=== PATIENT | male | born 1955 | race Caucasian/White ===

== ENCOUNTER 2023-12-08 12:01 | Outpatient (CLI) | payer MEDICARE, SELFPAY ==
--- NOTE | 2023-12-08 12:09 | XR_ITS ---
PROCEDURE INFORMATION: Exam: XR Right Hip Exam date and time: 12/08/2023 12:25 PM Age: 68 years old Clinical indication: Right hip; Patient HX: Woke up with hip pain TECHNIQUE: Imaging protocol: Radiologic exam of the right hip. Views: 2 or 3 views hip with pelvis when performed. COMPARISON: No relevant prior studies available. FINDINGS: Bones/joints: Unremarkable. No acute fracture. Soft tissues: Unremarkable. IMPRESSION: No acute findings.
== END 2023-12-08 23:59 | disposition home or self-care (01) ==
LOC: RAD 12:06
PROVIDERS: PCP Family Medicine; Visit Provider Nurse Practitioner Family
DX: M25.551 Pain in right hip (principal)
CPT/HCPCS: 73502

== ENCOUNTER 2023-12-15 10:40 | Emergency (ER) | payer MEDICARE, SELFPAY ==
[2023-12-15 10:55] VITALS: BP 143/89; PULSE 101; RESP 19; TEMP 36.8; O2SAT 98; BMI 33.5
--- NOTE | 2023-12-15 11:13 | EXP.UTC ---
Discharge Plan Disposition Patient Disposition: Home, Self-Care Condition: Good Referrals Follow up/Referrals: Rashid Paul MD [Primary Care Provider] - See instructions Activity Restrictions/Add. Instructions Additional Instructions/Restrictions: Your Uric acid was within the normal range today, make sure to follow up with your Family Doctor if you start having symptoms again The naproxen may help with pain and help with gout if you are having a gout flare Return if needed Straight to ER if any life threatening symptoms Clinical Impressions Clinical Impression: Knee pain Qualifiers: Chronicity: unspecified Laterality: left Qualified Code(s): M25.562 - Pain in left knee Instructions Patient Instructions: DI for Knee Pain, Naproxen Print Language Print Language: Lithuanian Discharge ED Provider: Shreya Smith [facility] General Stated complaint: Gout Mode of Arrival: Ambulatory Source of Information: Patient Limitations: No Limitations Time Seen by Provider: 12/15/23 11:14 Description of Symptoms (Recalled from Triage Doc. by RN): PATIENT C/O PAIN TO RIGHT HIP THAT RADIATES DOWN TO KNEE SINCE 12/01/23 HEENT Symptoms (Recalled from RN notes): No Resp Symptoms (Recalled from RN notes): No Skin Symptoms (Recalled from RN notes): No MS Symptoms (Recalled from RN notes): Yes Functional Status (Recalled from RN notes): WNL History of Present Illness Provider Complaint: Patient states that he started last week with pain in his right leg States initially it was in his hip and radiated down his leg states he seen PCP and they given him a steriod pack and anti-inflammatory medication but then he stared with pain in his left knee and it was swollen and felt like he had gout States a friend had purple gout pills that he took 2 waited an hour and then took another one the pain went away States today he felt like he was starting to have pain again in his knee and wanted to get some more of the gout pills States he had an xray done on his right hip last week and it didnt show anything wanting to get tested for gout Related Data Allergies Allergy/AdvReac Type Severity Reaction Status Date / Time No Known Allergies Allergy Verified 12/15/23 11:02 Worker's Comp Is this a Worker's Comp case?: No [facility] Disclaimer: The information contained in this section may have been updated after the patient was seen, as this information can be updated by other users. Medical History (Updated 12/15/23 @ 11:46 by Shreya Smith APRN) No significant past medical history Social History Smoking Status: Unknown if ever smoked alcohol intake: never current occupational status: retired Travel in the last 8 weeks: None ROS Obtained: Yes All systems reviewed & no additional complaints except as documented and Yes Systems reviewed as appropriate & no additional complaints except as documented Constitutional Constitutional: Reports system reviewed and no additional complaints, except as documented, Reports as per HPI, Denies body ache, Denies chills and Denies fever(s) ENT Ears, Nose, Mouth, and Throat: Reports system reviewed and no additional complaints, except as documented and Reports as per HPI Cardiovascular Cardiovascular: Reports system reviewed and no additional complaints, except as documented and Reports as per HPI Respiratory Respiratory: Reports system reviewed and no additional complaints, except as documented and Reports as per HPI Gastrointestinal Gastrointestingal: Reports system reviewed and no additional complaints, except as documented and as per HPI Musculoskeletal Musculoskeletal: Reports system reviewed and no additional complaints, except as documented, Reports as per HPI and Reports other Comments: Pain on and off in right hip/knee area last week took steriod pack Took friends gout medication and pain went away Physical Exam General General appearance: alert and in no apparent distress ENT ENT exam: Present mucous membranes moist Respiratory Respiratory exam: Present normal lung sounds bilaterally; Absent respiratory distress or wheezes Cardiovascular Cardiovascular exam: Present regular rate, normal rhythm and normal heart sounds Expanded Lower Extremity Exam Right: Leg image: 1. having a little tenderness, no redness, no swelling Knee exam: Present tenderness Lower leg exam: Present normal inspection Foot/toe exam: Present normal inspection Neurological Exam Neurological exam: Present alert, oriented X3 and normal gait Medical Decision Making Medical Records Screening: Per USPSTF and CDC recommendations, given the prevalence of disease in our region, it is our hospital?s policy to screen for HIV and viral Hepatitis for all patients aged 18 and over and those with ongoing risk factors. Wei Inquiry Pt receiving controlled substance: No Wei was queried for this patient: No Vital Signs: 12/15/23 10:55 Temperature 98.3 F Temperature Source Oral Pulse Rate [Left Brachial] 101 H Respiratory Rate 19 Blood Pressure [Left Arm] 143/89 H Blood Pressure Mean [Left Arm] 107 Blood Pressure Source [Left Arm] Automatic Cuff Blood Pressure Position [Left Arm] Sitting 02 Sat by Pulse Oximetry 98 Oxygen Delivery Method Room Air Lab Data Lab results reviewed: Yes I reviewed the patient's lab results. Orders (Tests/Meds): ORDERS Category Date Time Status Uric Acid Stat Lab 12/15/23 11:08 Ordered Medical Decision Narrative: Patient had Hip xray on 12/08/23 discussed knee xray and he declined wanted to get uric acid checked
[2023-12-15 11:34] LABS: Uric Acid 3.5 mg/dl (3.5-8.5)
[2023-12-15 11:46] VITALS: BP 143/89; PULSE 101; RESP 19; TEMP 36.8; O2SAT 98
== END 2023-12-15 11:49 | disposition home or self-care (01) ==
PROVIDERS: Emergency Provider Nurse Practitioner; PCP Family Medicine
DX: M25.562 Pain in left knee (principal)
CPT/HCPCS: 84550; 99213; G0381

== ENCOUNTER 2024-01-05 11:04 | Outpatient (CLI) | payer MEDICARE, SELFPAY ==
--- NOTE | 2024-01-05 11:10 | XR_ITS ---
FINAL REPORT CLINICAL HISTORY: LEG WEAKNESS B/L COMPARISON: None FINDINGS: AP, lateral, and oblique views of the lumbar spine were obtained. There is no acute fracture or acute malalignment. Vertebral body height is preserved. Multilevel degenerative changes present, most pronounced at the L5-S1 level. No acute paraspinal abnormality is identified. IMPRESSION: Multilevel degenerative disease most pronounced at the L5-S1 level. Reviewed, Interpreted and Dictated by Adelia Funez MD Transcribed by Ashlie Rendon Authenticated and [facility]
== END 2024-01-05 23:59 | disposition home or self-care (01) ==
LOC: RAD 11:05
PROVIDERS: PCP Family Medicine; Visit Provider Family Medicine
DX: R29.898 Other symptoms and signs involving the musculoskeletal system (principal)
CPT/HCPCS: 72110

== ENCOUNTER 2024-03-02 08:10 | Outpatient (CLI) | payer MEDICARE, SELFPAY ==
--- NOTE | 2024-03-02 08:23 | MR_ITS ---
FINAL REPORT CLINICAL HISTORY: IDIOPATHIC NEUROPATHY. right leg pain and burning COMPARISON: None FINDINGS: Multiplanar MR imaging of the lumbar spine was performed without and with contrast. On the sagittal T2-weighted images, abnormal decreased signal is seen throughout. There is moderate loss of height at L5-S1 with endplate reactive signal changes. L1-2: No significant canal stenosis or neuroforaminal narrowing is seen. L2-3: Mild diffuse disc bulge. Mild bilateral neuroforaminal narrowing L3-4: Moderate diffuse disc bulge. Endplate hypertrophy. Moderate to high-grade bilateral neuroforaminal narrowing L4-5: Moderate diffuse disc bulge. Bilateral facet hypertrophy. Moderate to high-grade right and moderate left neuroforaminal narrowing. L5-S1: Moderate diffuse disc bulge. Endplate hypertrophy. Mild right and moderate to high-grade left neuroforaminal narrowing. No abnormal contrast enhancement is identified. IMPRESSION: Neuroforaminal narrowing most evident on the left at L3-4 and L5-S1 and on the right at L4-5 Reviewed, Interpreted and Dictated by Jimbo Fowler MD Transcribed by Shandra Whipple Authenticated and [facility]
[2024-03-02 08:50] LABS: Blood Urea Nitrogen 16 mg/dl (9-20); Estimated Glomerular Filt Rate 113 ml/min (>60); GFR (African American) 137 ML/MIN (>60)
[2024-03-02] MEDS: SODIUM CHLORIDE 0.9% 10ML SYR (RAD ONLY) 10 ML IV ×2 (09:11→09:37)
[2024-03-02] MEDS: GADOTERIDOL INJ 20ML SYRINGE 18 ML IV (09:11)
--- NOTE | 2024-03-02 09:25 | CT_ITS ---
FINAL REPORT TECHNIQUE: Thin section axial images were obtained of the abdomen pelvis before and after the administration of IV contrast. Coronal and sagittal reconstructions were obtained and reviewed. This study was performed with techniques to keep radiation doses as low as reasonably achievable, (ALARA). Individualized dose reduction techniques using automated exposure control or adjustment of mA and/or kV according to the patient's size were employed. CLINICAL HISTORY: IDIOPATHIC NEUROPATHY COMPARISON: None FINDINGS: Calcified granulomas are seen in the right lung base. There is mild fatty infiltration of the liver. The gallbladder is normal. Calcified granulomas are seen in the spleen. The pancreas, adrenal glands, and kidneys are unremarkable. The urinary bladder is incompletely distended. There appendix is unremarkable. There are moderate hypertrophic changes of degenerative disc disease at L5-S1. Precontrast images demonstrate no nephrolithiasis. IMPRESSION: No acute process Reviewed, Interpreted and Dictated by Jimbo Fowler MD Transcribed by Shandra Whipple Authenticated and [facility]
[2024-03-02] MEDS: IOPAMIDOL-370 (76%);100ML BOTTLE 75 ML IV (09:37)
== END 2024-03-02 23:59 | disposition home or self-care (01) ==
LOC: RAD 08:13
PROVIDERS: PCP Family Medicine; Visit Provider Family Medicine
DX: G60.9 Hereditary and idiopathic neuropathy, unspecified (principal)
CPT/HCPCS: 36415; 72158; 74178; 82565; 84520; A9576; Q9967

== ENCOUNTER 2024-03-29 10:07 | Outpatient (POV) | payer MEDICARE, SELFPAY ==
--- NOTE | 2024-03-29 10:18 | A.OFFVIS_ITS ---
HPI Data of Consult Patient: new to practice Consult date: 03/29/24 Requesting Physician: Kat Bush APRN Primary Care Provider: Tyree Paul MD Consult Narrative Reason for consult: Low back pain, right leg pain History of present illness: Mr. Pope is a 68 year old male who presents today as a new patient. He is a referral from Dr. Mondragon's office. Today he rates his pain an 8 out of 10. Patient states his pain is all radiating down his entire right extremity. Patient does state that he has had low back pain for years that is progressively worsened related to wear and tear. Patient states that it was in November however that all of a sudden he had a burning sensation that went from his hip down to his foot. Patient states it was debilitating and he could not even walk due to the worsening symptoms. He states he ended up going to urgent treatment and did get muscle relaxers. He states that this really did not seem to make a big difference and he ended up seeing his primary care who has done meloxicam gabapentin and prednisone. He states that these did seem to help a little bit however he is still having the fairly constant pain of burning, tingling down the right extremity. He denies any issues with the left side. He states that no specific positioning is very helpful and that it does interfere with his ability perform activities of daily living such as cooking and cleaning. Patient states that he did end up seeing neurosurgery however he was not given much information in this appointment other than he had a pinched nerve. Patient states he was very frustrated with not giving more details or information or options. Patient has tried oral medication, heat and ice and topicals with minimal relief. He does state that the ice does seem to help better however it is still very temporary. He denies any prior surgery or injection history. He does have a very active life and exercises on a regular basis prior to this pain for longer than 12 weeks. He states he is still trying to do exercise and home stretching however it is very limited due to the worsening pain symptoms. Patient denies any recent chiropractor or physical therapy.Patient is currently managed with pregabalin 75 mg 3 times a day from an outside provider. Patient had been previously prescribed gabapentin. His Wei has been reviewed and is appropriate. CC: Kat Bush APRN [facility] Disclaimer: The information contained in this section may have been updated after the patient was seen, as this information can be updated by other users. Medical History (Updated 03/29/24 @ 10:58 by Kat Bush APRN) No significant past medical history Social History (Updated 12/15/23 @ 11:47 by Shreya Smith APRN) Smoking Status: Unknown if ever smoked alcohol intake: never current occupational status: retired Travel in the last 8 weeks: None Review of Systems Review of Systems Review of systems:: pertinent systems reviewed and negative unless documented below Review of systems (narrative): Review of Systems: General: No recent weight changes, no fever, no sleep disturbances Respiratory: No cough, no shortness of air, no recurring pulmonary infections Cardiovascular/peripheral vascular: No chest pain, no palpitations, no edema, no shortness of breath Gastrointestinal: No new onset incontinence, normal bowel movements reported Genitourinary: No new onset incontinence Musculoskeletal: Low back pain, right leg pain, right hip pain Psychiatric: [Normal mood/affect] Neurological: [Denies weakness in extremities], [denies balance issues] Meds Home Medications and Allergies New Prescriptions to Start Prescriptions: Allergies Allergy/AdvReac Type Severity Reaction Status Date / Time No Known Allergies Allergy Verified 12/15/23 11:02 Objective Narrative: Physical Exam: General: Alert and oriented x3, no acute distress, pleasant and cooperative Lungs: Respirations even and unlabored, symmetrical chest expansion Eyes: PERRL Musculoskeletal: Flexion and extension of lumbar [spine] somewhat guarded secondary to pain, [antalgic gait noted] positive right leg raise Neurological: Speech clear, no gross sensory deficit Additional findings Additional findings: FINDINGS: Multiplanar MR imaging of the lumbar spine was performed without and with contrast. On the sagittal T2-weighted images, abnormal decreased signal is seen throughout. There is moderate loss of height at L5-S1 with endplate reactive signal changes. L1-2: No significant canal stenosis or neuroforaminal narrowing is seen. L2-3: Mild diffuse disc bulge. Mild bilateral neuroforaminal narrowing L3-4: Moderate diffuse disc bulge. Endplate hypertrophy. Moderate to high-grade bilateral neuroforaminal narrowing L4-5: Moderate diffuse disc bulge. Bilateral facet hypertrophy. Moderate to high-grade right and moderate left neuroforaminal narrowing. L5-S1: Moderate diffuse disc bulge. Endplate hypertrophy. Mild right and moderate to high-grade left neuroforaminal narrowing. No abnormal contrast enhancement is identified. IMPRESSION: Neuroforaminal narrowing most evident on the left at L3-4 and L5-S1 and on the right at L4-5 Assessment and Plan *Assessment and plan (1) Degenerative disc disease, lumbar: Status: Acute Category: Medical Code(s): M51.369 - Other intervertebral disc degeneration, lumbar region without mention of lumbar back pain or lower extremity pain (2) Lumbar radiculopathy: Status: Acute Category: Medical Code(s): M54.16 - Radiculopathy, lumbar region (3) Right leg pain: Status: Acute Category: Medical Code(s): M79.604 - Pain in right leg Plan Patient is experiencing worsening pain in his low back with burning and tingling into his right leg. Patient did have limited range of motion of his lumbar spine with a positive leg raise. I did discuss with patient that I do believe they would benefit from a lumbar epidural steroid injection. Risk and benefits were discussed with patient and the patient would like to proceed forward with this plan of care. Patient is not on any blood thinners. Patient has tried and failed conservative therapy including continued at home stretching exercise for longer than 12 weeks. Patient has been seen by neurosurgery and was not a surgical candidate. I will order the patient a compounded cream. We will nani edule the patient for an LESI L4-L5 under fluoroscopy. Patient does have moderate to high-grade narrowing along the right side at this level. Patient has been instructed to contact the clinic with any concerns before the next appointment. Dr. Ferreira has reviewed this note and agrees with this plan of care. This note was dictated using voice recognition software and make contain errors or omissions. All injections are used with Lidocaine, Bupivacaine and Depo Medrol. Occasionally urine drug screen is needed to verify patient's compliance with our office pain contract. This is ordered based off specific treatments related to chronic pain with the potential to abuse certain medications. Patient has been instructed to contact the clinic with any concerns before the next appointment. Dr. Ferreira has reviewed this note and agrees with this plan of care. This note was dictated using voice recognition software and make contain errors or omissions. All injections are used with Lidocaine, Bupivacaine and Depo Medrol. Occasionally urine drug screen is needed to verify patient's compliance with our office pain contract. This is ordered based off specific treatments related to chronic pain with the potential to abuse certain medications.
[2024-03-29 11:08] VITALS: BP 136/90; PULSE 82; RESP 18; O2SAT 94; BMI 29.1
== END 2024-03-29 23:59 | disposition home or self-care (01) ==
LOC: SC.PAIN 10:09
PROVIDERS: PCP Psychiatry & Neurology Sleep Medicine; Visit Provider Nurse Practitioner Family
DX: M51.16 Intervertebral disc disorders with radiculopathy, lumbar region (principal); M79.604 Pain in right leg; Z73.89 Other problems related to life management difficulty
CPT/HCPCS: 99202; G0463

== ENCOUNTER 2024-04-20 11:57 | Day surgery (SDC) | payer MEDICARE, SELFPAY ==
[2024-04-20 11:59] VITALS: BP 123/82; PULSE 68; RESP 16; TEMP 37.1; O2SAT 96; BMI 30.1
--- NOTE | 2024-04-20 12:20 | EXP.PAIN.PRO ---
Procedure Date: 04/20/24 Time: 12:15 Anesthesiologist:: Elliot Bowling CRNA Complications:: None Pre-procedure Diagnosis:: Degenerative disc lumbar spine multilevels. Lumbar radiculopathy. Post-procedure Diagnosis:: Same. Indications for Procedure:: Patient is a very pleasant 68-year-old male who comes our clinic today for lumbar epidural steroid injection. Patient describes low lumbar back pain as constant, dull, aching. Patient also reports bilateral hip and leg radicular symptoms. He rates his pain 8/10. Procedure Details:: Procedure: Lumbar epidural steroid injection under fluoroscopy Informed consent was obtained and the risks and benefits of the procedure were explained to the patient. The patient was taken to the procedure room and noninvasive monitors placed, including noninvasive blood pressure cuff and pulse oximeter. The back was viewed using C-arm Fluoroscopy and prepped using Chloraprep as a cleansing solution and the L4-L5 interspace was palpated. Skin and subcutaneous tissues were anesthetized using lidocaine 1.5% and a 25-gauge needle. After this, an 18-gauge Touhy epidural needle was placed into the L4-L5 interspace and advanced using fluoroscopic guidance and loss of resistance to air until the epidural space was encountered. After confirmation of needle placement in the epidural space, with dye, a solution containing normal saline, 3 mL and Depo-Medrol 80 mg were incrementally injected into the lumbar epidural space. The patient tolerated the procedure well with no complications. The patient was observed in the Pain Clinic and then discharged home neurologically intact. Plan and Disposition:: Patient was discharged without incident.
[2024-04-20 12:27] VITALS: BP 110/75; PULSE 72; RESP 16; O2SAT 95
[2024-04-20 14:33] VITALS: BP 123/82; PULSE 68; RESP 18; O2SAT 96
[2024-04-20] MEDS: methylPREDNISolone ACETATE 80MG/ML VIAL 80 MG (14:33)
[2024-04-20 14:38] VITALS: BP 123/82; PULSE 68; RESP 18; O2SAT 96
== END 2024-04-20 12:27 | disposition home or self-care (01) ==
PROVIDERS: PCP Psychiatry & Neurology Sleep Medicine; Visit Provider Nurse Anesthetist, Certified Registered
DX: M51.16 Intervertebral disc disorders with radiculopathy, lumbar region (principal)
CPT/HCPCS: 62323; J1010

== ENCOUNTER 2024-10-23 09:55 | Emergency (ER) | payer MEDICARE, SELFPAY ==
--- OUTSIDE RECORDS SUMMARY | 2024-02-05 12:15 | XMS_ITS ---
[facility] Address [address] [facility] [address] [place] [id number] Care Team Providers Care Mobile Battery Technician Name Role Phone Norberto Paul Primary Care Provider Allergies No Known Allergies Results Component Value Reference Range Notes P-PSA Reviewed date:02/09/2024 01:16:37 PM Interpretation:Normal Performing Lab: Notes/Report: Test performed by [facility] [address] [place] [address] , [address], [place] [address] Chris Cabezas MD, Drawing Kiln Operator CLIA: [id number] PSA 3.01 <4.00 ng/mL Please note this is an ultrasensitive PSA assay with a lower limit of detection of 0.014 ng/mL. This test is performed by the Courtney ECLIA methodology. Values obtained with different assay methods or kits cannot be directly compared. MRI : spine, lumbosacral wit h and without contrast Reviewed date:03/08/2024 09:03:46 AM Interpretation:neuroforaminal narrowing, 03/05/24 f/u OV Performing Lab: Notes/Report: neuroforaminal narrowing, 03/05/24 f/u OV CT Scan : Abdomen & Pelvis w & w/o contrast Reviewed date:03/08/2024 09:03:39 AM Interpretation:Negative, see 03/05/2024 OV Performing Lab: Notes/Report: Negative, see 03/05/2024 OV REASON FOR VISIT F/U Medications Medication SIG (Take, Route, Fr equency, Duration) Notes Start Date End Date Status Naproxen 500 MG TAKE 1 TABLET BY DOLLY TH EVERY 12 HOURS WITH FOOD OR MILK NEEDED; Duration: 30 Active Problems Problem Type SNOMED Code ICD Code Onset Dates Problem Status W/U Status Risk Notes Problem 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 Vital Signs Blood pressure systolic 126 mm Hg 02/05/20 24 Blood pressure diastolic 82 mm Hg 024 Heart Rate 75 /min 02/05/2024 Height 58 in 02/05/2024 Weight 201.8 lbs 02/05/2024 BMI 42.17 kg/m2 02/05/2024 Encounters Encounter Location Date Provider Diagnosis [facility] [address] [facility] [address] [place] [id number] 02/05/2024 Norberto Paul Idiopathic neuropath y G60.9 and Prostate cancer screening Z12.5 Assessments Encounter Date Diagnosis (ICD Code) Assessment Notes Treatment Notes Treatment Clinical Notes Section Notes 02/05/2024 Idiopathic neuropathy (ICD-10 - G60.9) 02/05/2024 Prostate cancer screening (ICD-10 - Z12.5) Plan Of Treatment Next Appt Details Follow Up: 3 Weeks, Reason: Provider Name:Norberto Yeager er, 11/01/2024 10:15:00 AM, [address] [facility], [address], [place], [id number], Progress Notes * Soren POPEOB:1955 (69 yo M)Acc No.[id number]:02/05/2024 Progress Notes Patient: Kapil MALONEY Provider: Norberto Paul M.D. :1955 A ge:68 Y S ex:Male Date:02/05/2024 Address:[facility] [address], [id number] Subjective: * Chief Complaints: * 1 . F/U. * HPI: H PI: 68 year old male presents with c/o Here for follow up on: P t is here for a f/u from the neurologist last week. Pt sts after having the procedure done he is doing worse. * ROS: D ERMATOLOGY: no R panchito. n o H ramin. G ASTROENTEROLOGY: no N ausea. n o V omiting. n o D iarrhea.? U ROLOGY: no D ifficulty urinating. n o B lood in urine. * Medical History: M edical History Verified. * Surgical History: R wrist/ hand 12-19, right inguinal hernia repair 11/2009. * Family History: F ather: alive. M other: alive, high blood pressure. S iblings: gall bladder removed, sister. 1 brother(s) , 1 sister(s) . . * Social History: C affeine: yes, frequency:4 cups a coffee, a couple of pops during the day. Past smoking status: no. Alcohol: No. * Medications: T aking Naproxen 500 MG Tablet TAKE 1 TABLET BY MOUTH EVERY 12 HOURS WITH FOOD OR MILK NEEDED , Medication List reviewed and reconciled with the patient * Allergies: N .K.D.A. Objective: * Vitals: W t:201.8, Temp:98.4, BP:126/82, HR:75, Nurse:[facility], Ht: 58, BMI:42.17. * Examination: G eneral Examination: General Appearance: N AD. H EENT: u nremarkable.?Oral cavity: n o lesions, mucosa moist and WNL, no erythema. N asia: s upple, no lymphadenopathy. C hest: n ormal shape and expansion. H eart: R SR. L ungs: c lear to auscultation. A bdomen: soft and nontender, no organomegaly or masses. N eurologic Exam: I ntact, gait normal. S kin: n ormal, no rash. P eripheral pulses: n ormal (2+) bilaterally. E xtremities: n o leg edema. G enitalia: anus normal, no rectal lesions, prostate normal, prostate not enlarged. Assessment: * Assessment: 1. I diopathic neuropathy - G60.9 (Primary) 2 . P rostate cancer screening - Z12.5 Plan: * Treatment: ?Imaging: CT Scan : Abdomen & Pelvis w & w/o contrast (Performed Date - 03/02/2024)?Negative, see 03/05/2024 OV* Linda Lerner 02/09/2024 10:2 1:47 AM > auth#[id number]; valid 02/09/2024 through 04/09/2024; CPT code 11656; faxed to [facility] Linda Navas 02/09/2024 11:03:59 AM > Mariana scheduled him on 02/24/24 at 9:00 2.?Prostate cancer screening?LAB: P-PSA (Collection Date & Time - 02/05/2024 03:45 PM)?Normal* Value Reference Range P SA 3.01 <4.00 - ng/mL * Haley Carrasco 02/09/2024 1: 16:21 PM > , Patient informed of normal results. * Follow Up: 3 Weeks * Images: Billing Information: * Visit Code: 52296 Office Visit, Est Pt., Level 3. * Procedure Codes: * Electronic signature of Norberto Paul MD on 10/23/2024 at 10:18 AM EDT Sign off status: Pending * Provider: Norberto Paul M.D. Date: 04/07/2023 Generated for Printi ng/Faxing/eTransmitting on: 0 10/23/2024 10:18 AM EDT History and Physical Notes * HPI (History of Present Illness) Category Sub-Category Detail Notes Category Not es HPI Here for follow up on: Pt is her e for a f/u from the neurologist last week. Pt sts after having the procedure done he is doing worse Examination Category Sub-Category Detail Notes Category Not es General Examination HEENT: unremarkable Heart: RSR Lungs: clear to auscultatio n Abdomen: soft and nontender, no organomegaly or masses Extremities: no leg edema General Appearance: NAD Skin: normal, no rash Neurologic Exam: Intact, gait normal Neck: supple, no lymphaden opathy Oral cavity: no lesions, mucosa m oist and WNL, no erythema Peripheral pulses: normal (2+) bilatera lly Genitalia: anus normal, no rect al lesions, prostate normal, prostate not enlarged Chest: normal shape and exp ansion
--- OUTSIDE RECORDS SUMMARY | 2024-03-05 07:15 | XMS_ITS ---
Author [facility] Address [address] [facility] [address] [place] [id number] Care Team Providers Care Conservation Planner Name Role Phone Norberto Paul Primary Care Provider [phone] Allergies No Known Allergies Reason For Referral Reason LS spine, To see Dr. Todd Diagnosis 1 Neuroforaminal steno sis of lumbosacral spine (M48.07) Ref[facility] Referring Provider First Name Norberto Clements Referring Provider Last Name Humberto Referring Provider Speciality Family Pra ctice Referred Provider Specialty Neurological Surgery General Notes Linda Lerner 03/05/19 25 12:48:48 PM > faxed to [facility] Referral Priority Routine REASON FOR VISIT 3 week F/U, See MRI l-spine and CT Abd results Medications Medication SIG (Take, Route, Fr equency, Duration) Notes Start Date End Date Status Gabapentin 300 MG 1 capsule Orally Three times a day 03/05/2024 Active predniSONE 10 MG 1 tablet Orally Once a day 2024 Active Meloxicam 15 MG 1 tablet Orally Once a day 025 Active Naproxen 500 MG TAKE 1 TABLET BY DOLLY TH EVERY 12 HOURS WITH FOOD OR MILK NEEDED; Duration: 30 days Active Problems Problem Type SNOMED Code ICD Code Onset Dates Problem Status W/U Status Risk Notes Problem Lumbosacral spondylosis without myelopathy (43684443) Osteoarthritis of spine with radiculopathy, lumbar region (M47.26) Active confirmed Problem Spinal stenosis of lumbar region (43010635) 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) Active confirmed Vital Signs Blood pressure systolic 130 mm Hg 03/05/19 25 Blood pressure diastolic 86 mm Hg 025 Heart Rate 70 /min 03/05/2024 Height 58 in 03/05/2024 Weight 208.2 lbs 03/05/2024 BMI 43.51 kg/m2 03/05/2024 Encounters Encounter Location Date Provider Diagnosis [facility] [address] [facility] [address] [facility] [address] [place], [place] [id number] 03/05/2024 Norberto Paul Osteoarthritis of sp ine with radiculopathy, lumbar region M47.26 and Neuroforaminal stenosis of lumbosacral spine M48.07 Assessments Encounter Date Diagnosis (ICD Code) Assessment Notes Treatment Notes Treatment Clinical Notes Section Notes 03/05/2024 Osteoarthritis of spine with radiculopathy, lumbar region (ICD-10 - M47.26) 03/05/2024 Neuroforaminal stenosis of lumbosacral spine (ICD-10 - M48.07) Plan Of Treatment Medication Medication Name Sig Start Date Stop Date Notes Gabapentin 300 MG 1 capsule Orally Three times a day 03/05 predniSONE 10 MG 1 tablet Orally Once a day 03/05/2024 Meloxicam 15 MG 1 tablet Orally Once a day 03/05/2024 Referrals Referral Date Details 03/05/2024 03/05/2024, LS spine , To see Dr. Todd Next Appt Details Follow Up: 2 Weeks, Reason: Provider Name:Norberto Yeager er, 11/01/2024 10:15:00 AM, [address] [facility] [address] [facility], [address], [place], [id number], Progress Notes * OCTAVIANO AriRobertaOB:1955 (69 yo M)Acc No.[id number]:03/05/2024 Progress Notes Patient: Kapil MALONEY Provider: Norberto Paul M.D. :1955 A ge:68 Y S ex:Male Date:03/05/2024 Address:[address] [place] [address], [id number] Subjective: * Chief Complaints: * 1 . 3 week F/U. 2. See MRI l-spine and CT Abd results. * HPI: N eurology: See MRI results: neuroforaminal narrowing. Pt states the pain is worse. Pt rates the pain about a 7/10 on the pain scale. * ROS: D ERMATOLOGY: no R panchito. [...] Allergies: N .K.D.A. Objective: * Vitals: W t:208.2, Temp:98.0, BP:130/86, HR:70, Nurse:JOSE, Ht: 58, BMI:43.51. * Examination: G eneral Examination: General Appearance: N AD. H EENT: u nremarkable.?Oral cavity: n o lesions, mucosa moist and WNL, no erythema. N asia: s upple, no lymphadenopathy. C hest: n ormal shape and expansion. H eart: R SR. L ungs: c lear to auscultation. A bdomen: soft and nontender, no organomegaly or masses. N eurologic Exam: I ntact, gait normal, walking with cane. S kin: n ormal, no rash. P eripheral pulses: n ormal . E xtremities: n o leg edema. Assessment: * Assessment: 1. 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 N euroforaminal stenosis of lumbosacral spine - M48.07 Plan: * Treatment: * Follow Up: 2 Weeks * Images: Billing Information: * Visit Code: 41164 Office Visit, Est Pt., Level 3. * Procedure Codes: * Electronic signature of Norberto Paul MD on 10/23/2024 at 10:18 AM EDT Sign off status: Pending * Provider: Norberto Paul M.D. Date: 0 03/05/2024 Generated for Eani katherine/Yonny/eTransmitting on: 0 10/23/2024 10:18 AM EDT History and Physical Notes * Examination Category Sub-Category Detail Notes Category Not es General Examination HEENT: unremarkable Heart: RSR Lungs: clear to auscultatio n Abdomen: soft and nontender, no organomegaly or masses Extremities: no leg edema General Appearance: NAD Skin: normal, no rash Neurologic Exam: Intact, gait normal, walking with cane Neck: supple, no lymphaden opathy Oral cavity: no lesions, mucosa m oist and WNL, no erythema Peripheral pulses: normal Chest: normal shape and exp ansion Consultation Request Notes Referral Date Referring Provider Referred Provider Not es 03/05/2024 Norberto Paul , LS spine, To see Dr. Todd
--- OUTSIDE RECORDS SUMMARY | 2024-03-19 06:45 | XMS_ITS ---
Author Organization [facility] Address [address] [facility] 36 [facility] [address] [place] [phone] Care Team Providers Care Soil And Plant Scientist Name Role Phone Norberto Paul Primary Care Provider Allergies No Known Allergies REASON FOR VISIT [...] times a day 03/05/2024 Active Vital Signs Blood pressure systolic 130 mm Hg 03/19/19 25 Blood pressure diastolic 84 mm Hg 025 Heart Rate 71 /min 03/19/2024 Height 58 in 03/19/2024 Weight 205.4 lbs 03/19/2024 BMI 42.92 kg/m2 03/19/2024 Encounters Encounter Location Date Provider Diagnosis Sandip [address] [facility] 36 [facility] [address] [place] [phone] 03/19/2024 Nobrerto Paul Neuroforaminal steno sis of lumbosacral spine [...] Yeager er, 11/01/2024 10:15:00 AM, [address], [address], [place], [place], [id number], Progress Notes * Soren POPEOB:1955 (69 yo M)Acc No.[id number]:03/19/2024 Patient: Kapil MALONEY Provider: Norberto Paul M.D. :1955 A ge:68 Y S ex:Male Date:03/19/2024 Address:[address] [place] [address], [place], [id number] Subjective: * Chief Complaints: * 1 . [...] * Images: Billing Information: * Visit Code: 69210 Office Visit, Est Pt., Level 3. * Procedure Codes: G2211 Complex e/m visit add on. 3075F SYST BP GE 130 - 139MM HG. 3079F DIAST BP 80-89 MM HG. * Electronic signature of Norberto Paul MD on 10/23/2024 at 10:18 AM EDT Sign off status: Pending * Provider: Norberto Paul M.D. Date: 0 03/19/2024 Generated for Chad murphy/Yonny/eTransmitting on: 0 10/23/2024 10:18 AM EDT History [...]
--- OUTSIDE RECORDS SUMMARY | 2024-04-09 06:45 | XMS_ITS ---
Author Organization [facility] Address [address] [facility] 36 [facility] [address] [place] [phone] Care Team Providers Care Rn Occupational Health Name Role Phone Norberto Paul Primary Care Provider [phone] Allergies No Known Allergies REASON FOR VISIT 3 week f/u Medications Medication SIG (Take, Route, Fr equency, Duration) Notes Start Date End Date Status Naproxen 500 MG TAKE 1 TABLET BY DOLLY EVERY 12 HOURS WITH FOOD OR MILK NEEDED; Duration: 30 days Not-Ta polina Gabapentin 300 MG 1 capsule Orally Thr ee times a day 03/05/2024 Active predniSONE 10 MG 1 tablet Orally Once a day 2024 Active Meloxicam 15 MG 1 tablet Orally Once a day 025 Active Vital Signs Blood pressure systolic 126 mm Hg 04/09/19 25 Blood pressure diastolic 80 mm Hg 025 Heart Rate 60 /min 04/09/2024 Height 58 in 04/09/2024 Weight 218.6 lbs 04/09/2024 BMI 45.68 kg/m2 04/09/2024 Encounters Encounter Location Date Provider Diagnosis Sandip [address] [facility] 36 [facility] [address] [place] [phone] 04/09/2024 Norberto Paul Neuroforaminal steno sis of lumbosacral spine M48.07 and Osteoarthritis of spine with radiculopathy, lumbar region M47.26 Assessments Encounter Date Diagnosis (ICD Code) Assessment Notes Treatment Notes Treatment Clinical Notes Section Notes 04/09/2024 Neuroforaminal stenosis of lumbosacral spine (ICD-10 - M48.07) 04/09/2024 Osteoarthritis of spine with radiculopathy, lumbar region (ICD-10 - M47.26) Plan Of Treatment Next Appt Details Follow Up: 4 Weeks, Reason: Provider Name:Norberto Yeager er, 11/01/2024 10:15:00 AM, [address], [address], [place], [place], [id number], Progress Notes * Soren POPEOB:1955 (69 yo M)Acc No.[id number]:04/09/2024 Progress Notes Patient: Kapil MALONEY Provider: Norberto Paul M.D. :1955 A ge:68 Y S ex:Male Date:04/09/2024 Address:[address] [place] [address], [place], [id number] Subjective: * Chief Complaints: * 1 . 3 week f/u. * HPI: Florence gabmle back: The pt is here for a 3 week follow up on low back pain with sciatica. Pt states today he is doing better. Pt states the pain comes and goes. Pt states he is scheduled to have injections by Pain Management on April 20. Had consultation last week with Kat LA and was very pleased with her instruction and care. 68 year old male presents with c/o Low Back Pain. * ROS: D ERMATOLOGY: no R panchito. [...] Allergies: N .K.D.A. Objective: * Vitals: W t:218.6, Temp:97.7, BP:126/80, HR:60, Nurse:JOSE, Ht: 58, BMI:45.68. * Examination: G eneral Examination: General Appearance: [...] G 2211 Complex e/m visit add on, 3074F SYST BP LT 130 MM HG, 3079F DIAST BP 80-89 MM HG * Follow Up: 4 Weeks * Images: Billing Information: * Visit Code: 14587 Office Visit, Est Pt., Level 3. * Procedure Codes: G2211 Complex e/m visit add on. 3074F SYST BP LT 130 MM HG. 3079F DIAST BP 80-89 MM HG. * Electronic signature of Norberto Paul MD on 10/23/2024 at 10:19 AM EDT Sign off status: Pending * Provider: Norberto Paul M.D. Date: 0 04/09/2024 Generated for Chad murphy/Yonny/eTransmitting on: 0 10/23/2024 10:19 AM EDT History and Physical Notes * HPI (History of Present Illness) Category Sub-Category Detail Notes Category Not es Lower back Low Back Pain Examination Category Sub-Category Detail Notes Category Not [...]
--- OUTSIDE RECORDS SUMMARY | 2024-04-30 06:45 | XMS_ITS ---
Author Organization [facility] Address 1210 [facility] [address] [place] [phone] Care Team Providers Care Pneumatic Tool Operator Name Role Phone Norberto Paul Primary Care Provider Allergies No Known Allergies REASON FOR VISIT 4 week f/u Medications Medication SIG (Take, Route, Frequency, Duration) Notes Start Date End Date Status predniSONE 10 MG 1 tablet Orally Once a day 03/05/2024 Not-Taking Gabapentin 300 MG 1 capsule Orally Thr ee times a day 03/05/2024 Not-Taking Meloxicam 15 MG 1 tablet Orally Once a day Meloxicam prn 03/05/2024 Active Naproxen 500 MG TAKE 1 TABLET BY DOLLY TH EVERY 12 HOURS WITH FOOD OR MILK NEEDED; Duration: 30 days Not-Taking Vital Signs Blood pressure systolic 120 mm Hg 05/01/19 25 Blood pressure diastolic 80 mm Hg 025 Heart Rate 63 /min 04/30/2024 Height 58 in 04/30/2024 Weight 208.4 lbs 04/30/2024 BMI 43.55 kg/m2 04/30/2024 Encounters Encounter Location Date Provider Diagnosis Sandip 12[address] [facility] [address] [place] [phone] 04/30/2024 Norberto Paul Osteoarthritis of sp ine with radiculopathy, lumbar region M47.26 and Neuroforaminal stenosis of lumbosacral spine M48.07 Assessments Encounter Date Diagnosis (ICD Code) Assessment Notes Treatment Notes Treatment Clinical Notes Section Notes 04/30/2024 Osteoarthritis of spine with radiculopathy, lumbar region (ICD-10 - M47.26) 04/30/2024 Neuroforaminal stenosis of lumbosacral spine (ICD-10 - M48.07) Plan Of Treatment Medication Medication Name Sig Start Date Stop Date Notes Meloxicam 15 MG 1 tablet Orally Once a day 03/05/2024 Meloxicam prn Next Appt Details Follow Up: 5M, Reason: Provider Name:Norberto Yeager er, 11/01/2024 10:15:00 AM, [address], [address] , [place], [place], [id number], Progress Notes * Soren POPEOB:1955 (69 yo M)Acc No.[id number]:04/30/2024 Progress Notes Patient: Kapil MALONEY Provider: Norberto Paul M.D. :1955 A ge:68 Y S ex:Male Date:04/30/2024 Address:[address] [place] [address], [place], [id number] Subjective: * Chief Complaints: * 1 . 4 week f/u. * HPI: L ower back: The patient is here for a check up on low back pain. Pt states he is doing much better and has stopped all his medications. Had injection by Dr. Bowling last week which has helped greatly. * ROS: D ERMATOLOGY: no R panchito. [...] smoking status: no. Alcohol: No. * Medications: N ot-Taking Naproxen 500 MG Tablet TAKE 1 TABLET BY MOUTH EVERY 12 HOURS WITH FOOD OR MILK NEEDED , Not-Taking Gabapentin 300 MG Capsule 1 capsule Orally Three times a day , Not-Taking predniSONE 10 MG Tablet 1 tablet Orally Once a day , Not-Taking Meloxicam 15 MG Tablet 1 tablet Orally Once a day , Medication List reviewed and reconciled with the patient * Allergies: N .K.D.A. Objective: * Vitals: W t:208.4, Temp:97.9, BP:120/80, HR:63, Nurse:JOSE, Ht: 58, BMI:43.55. * Examination: G eneral Examination: General Appearance: [...] spine - M48.07 Plan: * Treatment: * Procedure Codes: G 2211 Complex e/m visit add on, 3074F SYST BP LT 130 MM HG, 3079F DIAST BP 80-89 MM HG * Follow Up: 5 M * Images: Billing Information: * Visit Code: 87830 Office Visit, Est Pt., Level 3. * Procedure Codes: G2211 Complex e/m visit add on. 3074F SYST BP LT 130 MM HG. 3079F DIAST BP 80-89 MM HG. * Electronic signature of Norbetro Paul MD on 10/23/2024 at 10:18 AM EDT Sign off status: Pending * Provider: Norberto Paul M.D. Date: 0 04/30/2024 Generated for Chad murphy/Yonny/eTdouglassmitting on: 0 10/23/2024 10:18 AM EDT History [...]
[2024-10-23] VITALS (11 sets, daily range): BP systolic 128–179; BP diastolic 86–134; PULSE 61–81; RESP 19; TEMP 36.7–36.9; O2SAT 92–99; BMI 28.7
--- OUTSIDE RECORDS SUMMARY | 2024-10-23 10:18 | XMS_ITS | Patient Health Record ---
Author Organization [facility] Address [address] [facility] [address] [place] [phone] Care Team Providers Care Perfect Binder Feeder Offbearer Name Role Phone Norberto Paul Primary Care Provider Catalina Fox Unavailable [phone] Allergies No Known Allergies Results Component Value Reference Range Notes X ray : Hip, right Reviewed date:12/09/2023 01:25:22 PM Interpretation:Negative Performing Lab: Notes/Report: Negative P-Basic Metabolic Panel (BMP ) Reviewed date:01/02/2024 02:48:00 PM Interpretation:Cr 0.67 Performing Lab: Notes/Report: Test performed by [facility] [address] [place] [address] , [place] [address] Chris Cabezas MD, Sec Reporting Consultant CLIA: [id number] Sodium 140 135-145 mmol/L Potassium 4.7 3.5-5.3 mmol/L Chloride 104 97-108 mmol/L CO2 24 22-32 mmol/L Glucose 86 65-99 mg/dL BUN 11 8-23 mg/dL Creatinine 0.67 0.70-1.30 mg/dL Calcium 10.0 8.6-10.4 mg/dL eGFR by Creatinine 103 >59 mL/min/1.73m2 P-Uric Acid Reviewed date:01/02/2024 02:48:00 PM Interpretation:Normal Performing Lab: Notes/Report: Test performed by [facility] [address] [place] [address] , [address], [place] [address] Chris Cabezas MD, Sec Reporting Consultant CLIA: [id number] Uric Acid 4.8 3.4-8.0 mg/dL P-CPK Reviewed date:01/06/2024 03:46:10 PM Interpretation:Normal Performing Lab: Notes/Report: Test performed by [facility] [address] [place] [address] , [address], [place] [address] Chris Cabezas MD, Sec Reporting Consultant CLIA: [id number] Creatine Kinase 119 20-200 U/L P-Sed Rate (ESR) Reviewed date:01/06/2024 03:46:10 PM Interpretation:21 Performing Lab: Notes/Report: Test performed by [facility] [address] , [address], [place] [address] Chris Cabezas MD, Sec Reporting Consultant CLIA: [id number] Erythrocyte Sedimentation Ra te (ESR), Automated 21 <21 mm/hr P-TSH Reviewed date:01/06/2024 03:46:10 PM Interpretation:Normal Performing Lab: Notes/Report: Test performed by [facility] [address] [place] [address] , [address], [place] [address] Chris Cabezas MD, Sec Reporting Consultant CLIA: [id number] TSH 1.23 0.43-5.25 mU/L X ray : Spine, lumbosacral Reviewed date:02/06/2024 10:33:49 AM Interpretation:multilevel DDD, see 02/04 f/u, EMG pending Performing Lab: Notes/Report: multilevel DDD, see 02/04 f/u, EMG pending H-BUN/CREAT Reviewed date:03/02/2024 09:33:36 AM Interpretation:Normal Performing Lab: Notes/Report: BUN 16 9-20 mg/dl CREATT 0.70 0.66-1.25 mg/dl GFRAA 137 >60 ML/MIN EGFR 113 >60 ml/min P-PSA Reviewed date:02/09/2024 01:16:37 PM Interpretation:Normal Performing Lab: Notes/Report: Test performed by [facility] [address] [place] [address] , [address], [place] [address] Chris Cabezas MD, Sec Reporting Consultant CLIA: [id number] PSA 3.01 <4.00 ng/mL Please note this [...] Performing Lab: Notes/Report: Negative, see 03/05/2024 OV Medications Medication SIG (Take, Route, Fr equency, Duration) Notes Start Date End Date Status predniSONE 10 MG 1 tablet Orally Once a day 2024 Not-Taking Gabapentin 300 MG 1 capsule Orally Thr ee times a day 03/05/2024 Not-Taking Meloxicam 15 MG 1 tablet Orally Once a day; Duration: 30 days Active Naproxen 500 MG TAKE 1 TABLET BY DOLLY TH EVERY 12 HOURS WITH FOOD OR MILK NEEDED; Duration: 30 days Not-Ta polina Problems Problem Type SNOMED Code ICD Code Onset Dates Problem Status W/U Status Risk Notes Problem Hyperlipidemia (81312124) Hyperlipidemia (272.4) Active confirmed Problem Lymphadenopathy (44062484) Lymphadenopathy (R59.1) Active confirmed Problem Malaise (085768356) Other malaise (R53.81) Active confirmed Problem Calcaneal spur of left foot (176297321997314) Calcaneal spur of left foot (M77.32) Active confirmed Problem Lumbosacral spondylosis without myelopathy (61894831) Osteoarthritis of spine with radiculopathy, lumbar region (M47.26) Active confirmed Problem 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 551 [facility] [address] [place] [id number] 12/29/2023 Norberto Paul Right leg pain M79.6 04 [facility] 1209 [facility] [address] [place] [id number] 01/05/2024 Norberto Paul Leg weakness, bilate ral R29.898 and Other malaise R53.81 [facility] [address] [place] [id number] 02/05/2024 Norberto Paul Idiopathic neuropath y G60.9 and Prostate cancer screening Z12.5 [facility] [address] [place] [id number] 03/05/2024 Norberto Paul Osteoarthritis of sp ine with radiculopathy, lumbar region M47.26 and Neuroforaminal stenosis of lumbosacral spine M48.07 [facility] [address] [place] [id number] 03/19/2024 Norberto Paul Neuroforaminal steno sis of lumbosacral spine M48.07 and Osteoarthritis of spine with radiculopathy, lumbar region M47.26 [facility] [address] [place] [id number] 04/09/2024 Norberto Paul Neuroforaminal steno sis of lumbosacral spine M48.07 and Osteoarthritis of spine with radiculopathy, lumbar region M47.26 [facility] [address] [place] [id number] 04/30/2024 Norberto Paul Osteoarthritis of sp ine with radiculopathy, lumbar region M47.26 and Neuroforaminal stenosis of lumbosacral spine M48.07 [facility] [address] [place], [place] [id number] 01/02/2024 Norberto Paul [facility] [address] [place], [place] [id number] 01/06/2024 Norberto Paul [facility] [address] [place], [place] [id number] 01/16/2024 Norberto Paul [facility] [address] [place], [place] [id number] 03/12/2024 Norberto Paul [facility] [address] [place], [place] [id number] 09/21/2024 Norberto Paul Assessments Encounter Date Diagnosis (ICD Code) Assessment Notes Treatment Notes Treatment Clinical Notes Section Notes 12/08/2023 Hip pain, right (ICD-10 - M25.551) meds with food; cautioned that muscle relaxant will make him drowsy; continue with heat/ice application; no lifting/pushin g/pullinguntil resolved 12/29/2023 Right leg pain (ICD-10 - M79.604) 01/05/2024 Other malaise (ICD-10 - R53.81) 01/05/2024 Leg weakness, bilateral (ICD-10 - R29.898) 03/05/2024 Osteoarthritis of spine with radiculopathy, lumbar region (ICD-10 - M47.26) 03/05/2024 Neuroforaminal stenosis of lumbosacral spine (ICD-10 - M48.07) 04/09/2024 Osteoarthritis of spine with radiculopathy, lumbar region (ICD-10 - M47.26) 04/09/2024 Neuroforaminal stenosis of lumbosacral spine (ICD-10 - M48.07) 04/30/2024 Osteoarthritis of spine with radiculopathy, lumbar region (ICD-10 - M47.26) 04/30/2024 Neuroforaminal stenosis of lumbosacral spine (ICD-10 - M48.07) 03/19/2024 Osteoarthritis of spine with radiculopathy, lumbar region (ICD-10 - M47.26) 03/19/2024 Neuroforaminal stenosis of lumbosacral spine (ICD-10 - M48.07) Instructed to wean the prednisone to 5mg every other day 02/05/2024 Prostate cancer screening (ICD-10 - Z12.5) 02/05/2024 Idiopathic neuropathy (ICD-10 - G60.9) Plan Of Treatment Pending Test Test Name Order Date EMG/NCV, bilateral 01/05/2024 Next Appt Details Provider Name:Norberto Yeager er, 11/01/2024 10:15:00 AM, [address] [facility], [address], [place], [place], [phone], Insurance Providers Payer Name Payer Address Payer Phone Subscriber Number Group Number Insured Name Patient Relationship to Insured Coverage Start Date Coverage End Date [employer] [address] [address] [place] [address] [id number] Kapil Pope Self - patient is the insured Medications Administered Medication Instructions Date of Administration Dosage Notes Dexamethasone 12/08/2023 1 mL Medical (General) History Surgical History Surgery Date(Month/Year) R wrist/ hand 12-19 right inguinal hernia repair 11/2009
--- OUTSIDE RECORDS SUMMARY | 2024-10-23 10:18 | XMS_ITS ---
Author Organization Unknown TREATMENT PLAN Planned [facility] Start Date Provider Encounter for Check-up [id number] [facility]
--- NOTE | 2024-10-23 10:19 | HMH.EDGENADL ---
Discharge Plan Disposition Patient Disposition: Home, Self-Care Condition: Fair Prescriptions Prescriptions: New lidocaine 5 % adhesive patch,medicated 1 patch topical DAILY Qty: 15 0RF Rx Instructions: leave on most painful area for up to 12 hrs methocarbamol 750 mg tablet 750 mg PO Q8H PRN (Reason: muscle spasm) Qty: 30 0RF oxycodone 5 mg tablet 5 mg PO Q6H PRN (Reason: pain) Qty: 12 0RF prednisone 10 mg tablet 10 mg PO DIRECTED Qty: 12 0RF Rx Instructions: Take 4 tabs (40 mg) tomorrow on 10/24/2024 Take 3 tabs (30 mg) on 10/25/2024 Take 2 tabs (20 mg) on 10/26/2024 Take 2 tabs (20 mg) on 10/27/2024 Take 1 tab (10 mg) on 10/28/2024 No Action prednisone 10 mg tablet 10 mg PO DAILY Patient Comments: TAKE 1 TABLET BY MOUTH DAILY meloxicam 15 mg tablet 15 mg PO DAILY Patient Comments: TAKE 1 TABLET BY MOUTH DAILY gabapentin 300 mg capsule 300 mg PO TID Patient Comments: TAKE 1 CAPSULE THREE TIMES DAILY BY MOUTH Referrals Follow up/Referrals: [facility] Physical Therapy [Provider Group, Physical Therapy] - See instructions Rashid Paul MD [Primary Care Provider, Medical] - See instructions Activity Restrictions/Add. Instructions Additional Instructions/Restrictions: I encourage you to follow-up with Dr. Paul regarding your sciatica pain. I also encourage you to call to try to get a sooner appointment for your injections, which seem to have helped in the past. I prescribed you a steroid taper, oxycodone, a muscle relaxer as well as lidocaine patches. In addition to this, you can take Tylenol and ibuprofen to help with your symptoms. I am also referring you to physical therapy as they can oftentimes help with sciatica type nerve pain. Continue your home medications as prescribed. If you develop any new or worsening symptoms, or if you become concerned for your help for any reason, return to the emergency department for evaluations Clinical Impressions Clinical Impression: Back pain with right-sided sciatica Print Language Print Language: Chinese Discharge ED Provider: Vinay Alonzo Adult [facility] General Chief complaint: PAIN Stated complaint: Back Pain Time Seen by Provider: 10/23/24 10:04 Mode of Arrival: Carried Source of Information: Patient Description of Symptoms (Recalled from ER Triage Doc. by RN): pt presents to ED with c/o back pain. pt arrives in the back of the vehicle laying down. pt reports that 3 days ago he was feeding his ducks and his feet slipped out from under him and he landed on his bottom. pt reports increasing pain since then. pt reports that he has known several pinches nerves and 1 bulging disc. pt has not followed up with neuro surgery. pt is able to walk short distances but is unable to sit in a chair. History of Present Illness HPI narrative: Kapil Pope is a 69-year-old male with a history of pinched nerve in his lower back with pain down his right leg x 3 months who presents the emergency department for complaints of pain in his lower back/right hip that radiates down to his knee. Patient states that he has been told that he has fissures in his back that have been causing his symptoms. He notes that he has had CT scans and MRIs confirming a pinched nerve. He states that his pain is always on the right side. He states that he has been prescribed gabapentin and meloxicam by Dr. Paul, which he states does not help. Patient states that 3 days ago, he has had worsening pain to his right hip and knee. He states that he felt like his leg gave out at that point and he squatted down but denies hitting his head or hitting his knee. He states that is difficult for him to walk now secondary to his severe pain. He denies any urinary incontinence or retention. He denies any genital numbness or tingling. He does state that he chronically has numbness and tingling in his distal right lower extremity that is not changed from baseline. he has not had any trauma to his back. Related Data Home Medications ?Medication ?Instructions ?Recorded ?Confirmed gabapentin 300 mg capsule 300 mg PO TID Pain 03/29/24 04/20/24 meloxicam 15 mg tablet 15 mg PO DAILY Pain 03/29/24 04/20/24 prednisone 10 mg tablet 10 mg PO DAILY Pain 03/29/24 04/20/24 Previous Rx's ?Medication ?Instructions ?Recorded lidocaine 5 % topical patch 1 patch topical DAILY #15 ea 10/23/24 methocarbamol 750 mg tablet 750 mg PO Q8H PRN muscle spasm #30 10/23/24 tabs oxycodone 5 mg tablet 5 mg PO Q6H PRN pain #12 tabs 10/23/24 prednisone 10 mg tablet 10 mg PO DIRECTED #12 tabs 10/23/24 Allergies Allergy/AdvReac Type Severity Reaction Status Date / Time No Known Allergies Allergy Verified 12/15/23 11:02 [facility] Disclaimer: The information contained in this section may have been updated after the patient was seen, as this information can be updated by other users. Medical History (Updated 10/23/24 @ 12:55 by Vinay Alonzo MD) No significant past medical history Surgical History Surgical history unknown Family History Other Unknown family medical history Social History Smoking Status: Never smoker alcohol intake: never current occupational status: retired Travel in the last 8 weeks?: None Have you lived/traveled outside US in past 30 days?: No Contact w/someone who lives/traveled outside US past 30 days?: No Exposure to someone with infectious disease in past 14 days?: No Do you have a fever (greater than 100.4 F or 38 C)?: No Have you tested positive for COVID-19?: No Exposed to someone with COVID-19 in past 14 days?: No Do you have a sore throat?: No Do you have a cough?: No Do you have any weakness?: No Do you have any diarrhea?: No Are you experiencing any unusual bleeding?: No Do you have any muscle aches/pain?: No Do you have any abdominal pain?: No Are you experiencing loss of taste or smell?: No Other Medical History Have you received the Flu Vaccine for this season: No Have you received the Pneumonia Vaccine: No ROS Obtained: Yes Systems reviewed as appropriate & no additional complaints except as documented Physical Exam General General appearance: alert and in no apparent distress Head Head exam: atraumatic Eye Eye exam: Present normal appearance ENT ENT exam: Present normal external ear exam Neck Neck exam: Present full ROM Chest Chest inspection: Present symmetric chest wall rise Respiratory Respiratory exam: Present normal lung sounds bilaterally; Absent respiratory distress Cardiovascular Cardiovascular exam: Present regular rate and normal rhythm Abdominal Exam Abdominal exam: Present soft; Absent tenderness or guarding exam: Present deferred Extremities Exam Extremities exam: Present normal inspection Back Exam Back exam: Present normal inspection Neurological Exam Neurological exam: Present alert, oriented X3 and other (RLE: positive straight leg raise. 5/5 strength with dorsiflexion and plantarflexion. sensation intact. Tenderness ove right knee.) Psychiatric Psychiatric exam: Present normal affect and anxious Skin Skin exam: Present warm and dry Medical Decision Making Medical Records Screening: Per USPSTF and CDC recommendations, given the prevalence of disease in our region, it is our hospital?s policy to screen for HIV and viral Hepatitis for all patients aged 18 and over and those with ongoing risk factors. Wei Inquiry Pt receiving controlled substance: Yes Wei was queried for this patient: Yes Risks and benefits of using a controlled substance: were discussed with pt by me Vital Signs: 10/23/24 10:01 10/23/24 10:09 10/23/24 10:20 Temperature 98.5 F Temperature Source Oral Pulse Rate 77 70 Pulse Rate [Left Radial] 79 Respiratory Rate 19 Blood Pressure 179/92 H 156/134 H Blood Pressure [Right Arm] 179/92 H Blood Pressure Mean [Right Arm] 121 02 Sat by Pulse Oximetry 98 98 96 Oxygen Delivery Method Room Air 10/23/24 10:40 10/23/24 11:00 10/23/24 11:20 Temperature Temperature Source Pulse Rate 61 70 67 Pulse Rate [Left Radial] Respiratory Rate Blood Pressure 150/88 H 161/100 H 156/92 H Blood Pressure [Right Arm] Blood Pressure Mean [Right Arm] 02 Sat by Pulse Oximetry 95 94 L 92 L Oxygen Delivery Method 10/23/24 11:40 10/23/24 12:02 10/23/24 12:20 Temperature Temperature Source Pulse Rate 64 81 61 Pulse Rate [Left Radial] Respiratory Rate Blood Pressure 165/90 H 179/86 H 154/92 H Blood Pressure [Right Arm] Blood Pressure Mean [Right Arm] 02 Sat by Pulse Oximetry 97 99 98 Oxygen Delivery Method Room Air Room Air Room Air 10/23/24 12:41 10/23/24 13:14 Temperature 98.0 F Temperature Source Pulse Rate 64 64 Pulse Rate [Left Radial] Respiratory Rate 19 Blood Pressure 128/91 H 128/91 H Blood Pressure [Right Arm] Blood Pressure Mean [Right Arm] 02 Sat by Pulse Oximetry 94 L Oxygen Delivery Method Orders (Tests/Meds): ED MEDICATIONS Discontinued Medications Generic Name Dose Route Start Last Admin Trade Name Alison PRN Reason Stop Dose Admin Acetaminophen 1,000 mg 10/23/24 10:16 10/23/24 10:24 Acetaminophen 500mg Tab PO 10/23/24 10:17 1,000 mg ONCE ONE Administration Ketorolac Tromethamine 15 mg 10/23/24 12:20 10/23/24 12:26 Ketorolac 15mg/Ml Vial IM 10/23/24 12:21 15 mg ONCE ONE Administration Lidocaine 1 each 10/23/24 10:16 10/23/24 10:24 Lidocaine 5% Transdermal Patch TD 10/23/24 10:17 1 each ONCE ONE Administration Oxycodone HCl 5 mg 10/23/24 10:17 10/23/24 10:24 Oxycodone 5mg Immediate Release Tablet PO 10/23/24 10:18 5 mg ONCE ONE Administration Prednisone 40 mg 10/23/24 10:16 10/23/24 10:24 Prednisone 20mg Tab PO 10/23/24 10:17 40 mg ONCE ONE Administration Medical Decision Narrative: Kapil Pope is a 69-year-old male with a history of pinched nerve in his lower back with pain down his right leg x 3 months who presents the emergency department for complaints of pain in his lower back/right hip that radiates down to his knee. Patient states that he has been told that he has fissures in his back that have been causing his symptoms. He notes that he has had CT scans and MRIs confirming a pinched nerve. He states that his pain is always on the right side. He states that he has been prescribed gabapentin and meloxicam by Dr. Paul, which he states does not help. Patient states that 3 days ago, he has had worsening pain to his right hip and knee. He states that he felt like his leg gave out at that point and he squatted down but denies hitting his head or hitting his knee. He states that is difficult for him to walk now secondary to his severe pain. He denies any urinary incontinence or retention. He denies any genital numbness or tingling. He does state that he chronically has numbness and tingling in his distal right lower extremity that is not changed from baseline. he has not had any trauma to his back. On arrival, patient is hemodynamically stable, in no acute distress, breathing comfortably on room air with appropriate oxygen saturation. Physical exam, stated above, reveals an uncomfortable appearing male in no distress. It is noted Patient was lying flat in the rear of the car in a gurney was brought out to the car upon his arrival. Patient was able to stand and move toward the stretcher and sit down. He has a positive straight leg raise on the right. Some tenderness in the right lower extremity, mostly of the knee, however he denies any trauma to this area. It does not appear swollen or red to the touch. Patient symptomatology is most consistent with his known radicular nerve type pain. CT imaging of the lumbar spine was considered, however given there is been no new traumatic injuries and he has these flares that have appeared similar in the past, is felt that no additional imaging studies are indicated at this time. Patient was initially treated with 40 mg of prednisone, 5 mg of oxycodone, lidocaine patch. On reassessment, patient states that he feels like the pain in the area of his knee has improved since these medications. He was able to ambulate a short distance but does report severe pain the longer that he ambulates and the farther that he goes. Patient was administered 15 mg of IM Toradol as well as 1000 mg of oral acetaminophen. At this time, is felt the patient is appropriate for discharge with plan to prescribe a prednisone taper, short course of oxycodone, lidocaine patches and he was encouraged to take Tylenol and ibuprofen in addition to these medications to help with his symptoms. I did encourage him to get back in with his pain specialist as he states that injections have helped in the past. Will refer the patient to physical therapy as they may be able to provide exercises and resources to help his radicular type pain. Patient remained stable throughout his ED visit and is appropriate for discharge at this time. Critical Care Critical Care Time Critical Care Time: No
[2024-10-23] MEDS: LIDOCAINE 5% TRANSDERMAL PATCH 1 EACH TD (10:24)
[2024-10-23] MEDS: ACETAMINOPHEN 500MG TAB 1000 MG PO (10:24)
[2024-10-23] MEDS: OXYCODONE 5MG IMMEDIATE RELEASE TABLET 5 MG PO (10:24)
[2024-10-23] MEDS: KETOROLAC 15MG/ML VIAL 15 MG IM (12:26)
== END 2024-10-23 13:14 | disposition home or self-care (01) ==
PROVIDERS: Emergency Provider Student in an Organized Health Care Education/Training Program; PCP Family Medicine
DX: M54.41 Lumbago with sciatica, right side (principal); M25.561 Pain in right knee; M25.551 Pain in right hip
CPT/HCPCS: 96372; 99283; 99284; J1885

== ENCOUNTER 2024-11-08 14:50 | Outpatient (CLI) | payer MEDICARE, SELFPAY ==
--- OUTSIDE RECORDS SUMMARY | 2024-03-05 07:15 | XMS_ITS ---
Author Organization [facility] Address [address] [facility] [address] [place] [id number] Care Team Providers Care Horse Racing Analyst Name Role Phone Norberto Paul Primary Care Provider [phone] Allergies No Known Allergies Reason For Referral Reason LS spine, To see Dr. 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) Active confirmed Vital Signs Weight 208.2 lbs 03/05/2024 Blood pressure systolic 130 mm Hg 03/05/19 25 Blood pressure diastolic 86 mm Hg 025 Heart Rate 70 /min 03/05/2024 Height 58 in 03/05/2024 BMI 43.51 kg/m2 03/05/2024 Encounters Encounter Location Date Provider Diagnosis [facility] [address] [facility] [address] [facility] [address] [place], [place] [id number] 03/05/2024 Norberto Paul Osteoarthritis of sp ine [...] 2 Weeks, Reason: Provider Name:Norberto Yeager er, 11/15/2024 02:15:00 PM, [address] [facility] [address] [facility], [address], [place], [id number], Progress Notes * OCTAVIANO AriRobertaOB:1955 (69 yo M)Acc No.[id number]:03/05/2024 Progress Notes Patient: Kapil MALONEY Provider: Norberto Paul M.D. :1955 A ge:68 Y S ex:Male Date:03/05/2024 Address:[address] [place] [address], [id number] Subjective: * Chief Complaints: * 1 . [...] * Images: Billing Information: * Visit Code: 14441 Office Visit, Est Pt., Level 3. * Procedure Codes: * Electronic signature of Norberto Paul MD on 11/08/2024 at 02:53 PM EDT Sign off status: Pending * Provider: Norberto Paul M.D. Date: 0 03/05/2024 Generated for Eani katherine/Yonny/eTransmitting on: 0 11/08/2024 02:53 PM EDT History and Physical Notes * Examination [...]
--- OUTSIDE RECORDS SUMMARY | 2024-03-19 06:45 | XMS_ITS ---
Author Organization [facility] Address [address] [facility] 36 [facility] [address] [place] [phone] Care Team Providers Care Night Worker Name Role Phone Norberto Paul Primary Care Provider [phone] Allergies No Known Allergies REASON FOR VISIT 2 week f/u Medications Medication SIG (Take, Route, Fr equency, Duration) Notes Start Date End Date Status predniSONE 10 MG 1 tablet Orally Once a day 2024 Active Meloxicam 15 MG 1 tablet Orally Once a day 025 Active Naproxen 500 MG TAKE 1 TABLET BY DOLLY EVERY 12 HOURS WITH FOOD OR MILK NEEDED; Duration: 30 days Not-Ta polina Gabapentin 300 MG 1 capsule Orally Thr ee times a day 03/05/2024 Active Vital Signs Weight 205.4 lbs 03/19/2024 Blood pressure systolic 130 mm Hg 03/19/19 25 Blood pressure diastolic 84 mm Hg 025 Heart Rate 71 /min 03/19/2024 Height 58 in 03/19/2024 BMI 42.92 kg/m2 03/19/2024 Encounters Encounter Location Date Provider Diagnosis Sandip [address] [facility] 36 [facility] [address] [place] [phone] 03/19/2024 Norberto Paul Neuroforaminal steno sis of lumbosacral spine M48.07 and Osteoarthritis of spine with radiculopathy, lumbar region M47.26 Assessments Encounter Date Diagnosis (ICD Code) Assessment Notes Treatment Notes Treatment Clinical Notes Section Notes 03/19/2024 Neuroforaminal stenosis of lumbosacral spine (ICD-10 - M48.07) Instructed to wean the prednisone to 5mg every other day 03/19/2024 Osteoarthritis of spine with radiculopathy, lumbar region (ICD-10 - M47.26) Plan Of Treatment Treatment Notes Assessment Notes Neuroforaminal stenosis of lumbosacral s pine Instructed to wean the prednisone to 5mg every other day Next Appt Details Follow Up: 3 Weeks, Reason: Provider Name:Norberto Yeager er, 11/15/2024 02:15:00 PM, [address], [address], [place], [place], [id number], Progress Notes * Soren POPEOB:1955 (69 yo M)Acc No.[id number]:03/19/2024 Patient: Kapil MALONEY Provider: Norberto Paul M.D. :1955 A ge:68 Y S ex:Male Date:03/19/2024 Address:[address] [place] [address], [place], [id number] Subjective: * Chief Complaints: * 1 . 2 week f/u. * HPI: Florence ower back: The patient is here for a follow up on low back pain with sciatica. Pt states he is pain free today. Pt states the Gabapentin is helping. Saw Dr. Todd last Friday. He was not impressed with the visit with Dr. Todd. * ROS: D ERMATOLOGY: no R panchito. [...] no. Alcohol: No. * Medications: T aking Gabapentin 300 MG Capsule 1 capsule Orally Three times a day , Taking predniSONE 10 MG Tablet 1 tablet Orally Once a day , Taking Meloxicam 15 MG Tablet 1 tablet Orally Once a day , Not-Taking Naproxen 500 MG Tablet TAKE 1 TABLET BY MOUTH EVERY 12 HOURS WITH FOOD OR MILK NEEDED , Medication List reviewed and reconciled with the patient * Allergies: N .K.D.A. Objective: * Vitals: W t:205.4, Temp:98.2, BP:130/84, HR:71, Nurse:JOSE, Ht: 58, BMI:42.92. * Examination: G eneral Examination: General Appearance: [...] o leg edema. Assessment: * Assessment: 1. N euroforaminal stenosis of lumbosacral spine - M48.07 (Primary) 2 . O steoarthritis of spine with radiculopathy, lumbar region - M47.26 Plan: * Treatment: * Procedure Codes: G 2211 Complex e/m visit add on, 3075F SYST BP GE 130 - 139MM HG, 3079F DIAST BP 80-89 MM HG * Follow Up: 3 Weeks * Images: Billing Information: * Visit Code: 43951 Office Visit, Est Pt., Level 3. * Procedure Codes: G2211 Complex e/m visit add on. 3075F SYST BP GE 130 - 139MM HG. 3079F DIAST BP 80-89 MM HG. * Electronic signature of Norberto Paul MD on 11/08/2024 at 02:53 PM EDT Sign off status: Pending * Provider: Norberto Paul M.D. Date: 0 03/19/2024 Generated for Chad murphy/Yonny/eTransmitting on: 0 11/08/2024 02:53 PM EDT History [...]
--- OUTSIDE RECORDS SUMMARY | 2024-04-09 06:45 | XMS_ITS ---
Author Organization [facility] Address [address] [facility] 36 [facility] [address] [place] [phone] Care Team Providers Care Home Care Aide Name Role Phone Norberto Paul Primary Care [...] Once a day 025 Active Vital Signs Weight 218.6 lbs 04/09/2024 Blood pressure systolic 126 mm Hg 04/09/19 25 Blood pressure diastolic 80 mm Hg 025 Heart Rate 60 /min 04/09/2024 Height 58 in 04/09/2024 BMI 45.68 kg/m2 04/09/2024 Encounters Encounter Location Date Provider Diagnosis Sandip [address] [facility] 36 [facility] [address] [place] [phone] 04/09/2024 Norberto Paul Neuroforaminal steno sis of [...] 4 Weeks, Reason: Provider Name:Norberto Yeager er, 11/15/2024 02:15:00 PM, [address], [address], [place], [place], [id number], Progress Notes * Soren POPEOB:1955 (69 yo M)Acc No.[id number]:04/09/2024 Progress Notes Patient: Kapil MALONEY Provider: Norberto Paul M.D. :1955 A ge:68 Y S ex:Male Date:04/09/2024 Address:[address] [place] [address], [place], [id number] Subjective: * Chief Complaints: * 1 . 3 week f/u. * HPI: Florence gamble back: The pt is here for a [...] * Images: Billing Information: * Visit Code: 48794 Office Visit, Est Pt., Level 3. * Procedure Codes: G2211 Complex e/m visit add on. 3074F SYST BP LT 130 MM HG. 3079F DIAST BP 80-89 MM HG. * Electronic signature of Norberto Paul MD on 11/08/2024 at 02:54 PM EDT Sign off status: Pending * Provider: Norberto Paul M.D. Date: 0 04/09/2024 Generated for Chad murphy/Yonny/eTransmitting on: 0 11/08/2024 02:54 PM EDT History and Physical Notes * HPI [...]
--- OUTSIDE RECORDS SUMMARY | 2024-04-30 06:45 | XMS_ITS ---
Author Organization [facility] Address [address] [facility] [address] [place] [phone] Care Team Providers Care Sand Screener Name Role Phone Norberto Paul Primary Care Provider [phone] Allergies No Known Allergies REASON FOR VISIT [...] NEEDED; Duration: 30 days Not-Taking Vital Signs Weight 208.4 lbs 04/30/2024 Blood pressure systolic 120 mm Hg 05/01/19 25 Blood pressure diastolic 80 mm Hg 025 Heart Rate 63 /min 04/30/2024 Height 58 in 04/30/2024 BMI 43.55 kg/m2 04/30/2024 Encounters Encounter Location Date Provider Diagnosis Sandip 1210 [facility] [address] [place] [phone] 04/30/2024 Norberto Paul Osteoarthritis of sp ine [...] Up: 5M, Reason: Provider Name:Norberto Yeager er, 11/15/2024 02:15:00 PM, [address], [address], [place], [place], [id number], Progress Notes * Soren POPEOB:1955 (69 yo M)Acc No.[id number]:04/30/2024 Progress Notes Patient: Kapil MALONEY Provider: Norberto Paul M.D. :1955 A ge:68 Y S ex:Male Date:04/30/2024 Address:[address] [place] [address], [place], [place]-[id number] Subjective: * Chief Complaints: * 1 . [...] * Images: Billing Information: * Visit Code: 41110 Office Visit, Est Pt., Level 3. * Procedure Codes: G2211 Complex e/m visit add on. 3074F SYST BP LT 130 MM HG. 3079F DIAST BP 80-89 MM HG. * Electronic signature of Norberto Paul MD on 11/08/2024 at 02:53 PM EDT Sign off status: Pending * Provider: Norberto Paul M.D. Date: 0 04/30/2024 Generated for Chad murphy/Yonny/eTdouglassmitting on: 0 11/08/2024 02:53 PM EDT History [...]
--- OUTSIDE RECORDS SUMMARY | 2024-11-01 06:15 | XMS_ITS ---
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 We will review your patient's records and contact you as quickly as possible. Please provide us with the clinical and demographic information we need for review. The Department of Neurosurgery requires that all new patients have had imaging (MRI or CT only) in the past six months which demonstrates an abnormality. Please fax recent office notes, history and physical, relevant radiologic study reports, copy of the patient's insurance card, and this form to [phone]., Linda Lerner 11/04/2024 09:18:10 AM > MRI scheduled for 11/08/2024 at 03:30pm Referral Priority Routine REASON FOR VISIT 5 month check, Needs labs, colon cancer screening, & Prevnar vaccine Medications Medication SIG (Take, Route, Frequency, Duration) Notes Start Date End Date Status predniSONE 10 MG 1 tablet Orally Once a day 03/05/2024 Not-Taking Naproxen 500 MG TAKE 1 TABLET BY DOLLY TH EVERY 12 HOURS WITH FOOD OR MILK NEEDED; Duration: 30 days Not-Taking Meloxicam 15 MG 1 tablet Orally Once a day; Duration: 30 days Active Methocarbamol 750 MG 1 tablet Orally inocencia ry 4 hrs Active Lidocaine 5 % 1 patch remove after 12 hours Externally Once a day Active HYDROcodone-Acetaminophen 7.5-325 MG 1 tablet as needed Orally 3 times a day 11/01/2024 Active Gabapentin 600 MG 1 tablet Orally 3 times a day; Duration: 30 days 11/01/2024 Active predniSONE 20 MG 1 tablet with food o r milk Orally Once a day; Duration: 30 day(s) 11/01/2024 Active Problems Problem Type SNOMED Code ICD Code Onset Dates Problem Status W/U Status Risk Notes Problem Body mass index 40+ - morbidly obese (509421555) BMI 40.0-44.9, adult (Z68.41) Active confirmed Vital Signs Weight 195 lbs 11/01/2024 Blood pressure systolic 170 mm Hg 11/02/19 25 Blood pressure diastolic 90 mm Hg 025 Heart Rate 90 /min 11/01/2024 Height 58 in 11/01/2024 BMI 40.75 kg/m2 11/01/2024 Encounters Encounter Location Date Provider Diagnosis [facility] [address] [place] [phone] 11/01/2024 Norberto Paul Osteoarthritis of sp ine with radiculopathy, lumbar region M47.26 ; Neuroforaminal stenosis of lumbosacral spine M48.07 ; Other malaise R53.81 and BMI 40.0-44.9, adult Z68.41 Assessments Encounter Date Diagnosis (ICD Code) Assessment Notes Treatment Notes Treatment Clinical Notes Section Notes 11/01/2024 Osteoarthritis of spine with radiculopathy, lumbar region (ICD-10 - M47.26) 11/01/2024 Neuroforaminal stenosis of lumbosacral spine (ICD-10 - M48.07) 11/01/2024 Other malaise (ICD-10 - R53.81) 11/01/2024 BMI 40.0-44.9, adult (ICD-10 - Z68.41) Plan Of Treatment Medication Medication Name Sig Start Date Stop Date Notes oxyCODONE HCl 5 MG 1 tablet as needed O rally every 6 hrs HYDROcodone-Acetaminophen 7.5-325 MG 1 tablet as needed Orally 3 times a day 11/01/2024 Gabapentin 300 MG 1 capsule Orally Thr ee times a day; Duration: 30 days 10/25/2024 Gabapentin 600 MG 1 tablet Orally 3 ti mes a day; Duration: 30 days 11/01/2024 predniSONE 20 MG 1 tablet with food o r milk Orally Once a day; Duration: 30 day(s) 11/01/2024 Referrals Referral Date Details 11/01/2024 11/01/2024, Needs re ferral to neurosurgery [facility] [place] Next Appt Details Follow Up: 1 Week, Reason: Provider Name:Norberto Yeager er, 11/15/2024 02:15:00 PM, [address], [address], [place], [place], [id number], Progress Notes * Soren POPEOB:1955 (69 yo M)Acc No.[id number]:11/01/2024 Progress Notes Patient: Kapil MALONEY Provider: Norberto Paul M.D. :1955 A ge:69 Y S ex:Male Date:11/01/2024 Address:[address] [place] [address], [place], [id number] Subjective: * Chief Complaints: * 1 . 5 month check. 2. Needs labs, colon cancer screening, & Prevnar vaccine. * HPI: C ardiology: 69 year old male presents with c/o Hyperlipidemia P t is here today for a 5 month check up on hyperlipidemia. Pt sts he is doing well and has no concerns at this time. Pt is fasting. H PI: c/o Patient is here today for P t sts he was at [facility] ER this weekend. See report. Treated with tapering prednisone and pain medication.Is here today for a f/u from the [facility]. Pt was seen in the ER for c/o back pain with rt sided-sciatica. Pt sts he has a severly pinched nerve and sts this has been ongoing for 11 days now and something needs to be done today. Pt sts this happened when he was feeding his ducks 3 days prior and slipped and fell and landed on his bottom. Pt is able to walk short distances, but unable to sit in a chair and has to be laying down. * ROS: D ERMATOLOGY: no R panchito. [...] no. Alcohol: No. * Medications: T aking oxyCODONE HCl 5 MG Tablet 1 tablet as needed Orally every 6 hrs , Taking Methocarbamol 750 MG Tablet 1 tablet Orally every 4 hrs , Taking Lidocaine 5 % Patch 1 patch remove after 12 hours Externally Once a day , Taking Meloxicam 15 MG Tablet 1 tablet Orally Once a day , Taking Gabapentin 300 MG Capsule 1 capsule Orally Three times a day , Not-Taking predniSONE 10 MG Tablet 1 tablet Orally Once a day , Not-Taking Naproxen 500 MG Tablet TAKE 1 TABLET BY MOUTH EVERY 12 HOURS WITH FOOD OR MILK NEEDED , Medication List reviewed and reconciled with the patient * Allergies: N .K.D.A. Objective: * Vitals: W t: 195, Temp: 97.6, BP: 170/90, HR: 90, O2 Sat: 99% on RA, Nurse: [facility], Ht: 58, BMI:40.75. * Examination: G eneral Examination: General Appearance: N AD. H EENT: u nremarkable.?Oral cavity: n o lesions, mucosa moist and WNL, no erythema. N asia: s upple, no lymphadenopathy. C hest: n ormal shape and expansion. H eart: R SR. L ungs: c lear to auscultation. A bdomen: soft and nontender, no organomegaly or masses. N eurologic Exam: u ncomfortable, laying flat. Decreased reflexes on the right, patellar and Achilles., dorsiflexion of toes intact and equal. S kin: n ormal, no rash. P eripheral pulses: n ormal . E xtremities: n o leg edema. Assessment: * Assessment: 1. 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 N euroforaminal stenosis of lumbosacral spine - M48.07 3 . O ther malaise - R53.81 4 . B AZ 40.0-44.9, adult - Z68.41 Plan: * Treatment: * Procedure Codes: G 2211 Complex e/m visit add on, 1036F TOBACCO NON-USER * Follow Up: 1 Week * Images: Drawin11/[address] [facility] Billing Information: * Visit Code: 04792 Office Visit, Est Pt., Level 4. * Procedure Codes: G2211 Complex e/m visit add on. 1036F TOBACCO NON-USER. * Electronic signature of Norberto Paul MD on 11/08/2024 at 02:53 PM EDT Sign off status: Pending * Provider: Norberto Paul M.D. Date: 0 11/01/2024 Generated for Chad murphy/Yonny/Liitting on: 0 11/08/2024 02:53 PM EDT History and Physical Notes * HPI (History of Present Illness) Category Sub-Category Detail Notes Category Not es Cardiology Hyperlipidemia Pt is here today for a 5 month check up on hyperlipidemia. Pt sts he is doing well and has no concerns at this time. Pt is fasting HPI Patient is here today for Pt sts he was at [facility] ER this weekend. See report. Treated with tapering prednisone and pain medication.Is here today for a f/u from [facility]. Pt was seen in the ER for c/o back pain with rt sided-sciatica. Pt sts he has a severly pinched nerve and sts this has been ongoing for 11 days now and something needs to be done today. Pt sts this happened when he was feeding his ducks 3 days prior and slipped and fell and landed on his bottom. Pt is able to walk short distances, but unable to sit in a chair and has to be laying down Examination Category Sub-Category Detail Notes Category Not es General Examination HEENT: unremarkable Heart: RSR Lungs: clear to auscultatio n Abdomen: soft and nontender, no organomegaly or masses Extremities: no leg edema General Appearance: NAD Skin: normal, no rash Neurologic Exam: uncomfortable, layin g flat. Decreased reflexes on the right, patellar and Achilles., dorsiflexion of toes intact and equal Neck: supple, no lymphaden opathy Oral cavity: no lesions, mucosa m oist and WNL, no erythema Peripheral pulses: normal Chest: normal shape and exp ansion Consultation Request Notes Referral Date Referring Provider Referred Provider Not es 11/01/2024 Norberto Paul , Needs refe rral to neurosurgery [facility] [place]
--- NOTE | 2024-11-08 14:53 | MR_ITS ---
PROCEDURE INFORMATION: Exam: MR Lumbar Spine Without and With Contrast Exam date and time: 11/08/2024 3:27 PM Age: 69 years old Clinical indication: Low back pain; Lower back pain with numbness and tingling in right leg since 01/12/24; Additional info: Idiopathic neuropathy TECHNIQUE: Imaging protocol: Magnetic resonance imaging of the lumbar spine without and with contrast. Contrast material: ISOVUE; Contrast volume: 18 ml; Contrast route: IV; COMPARISON: MR LUMBAR SPINE WO/W CON 03/02/2024 8:36 AM FINDINGS: Bones/joints: Vertebral body heights are preserved. Endplate changes are noted mainly along the inferior aspect of L5. Spondylosis is noted with disc bulging, facet arthropathy and ligamentous thickening. Spinal cord: Visualized cord, conus medullaris and cauda equina are unremarkable without compression. L1-L2: No significant disc bulge or herniation. No severe spinal canal stenosis. No significant neural foraminal narrowing. L2-L3: At L2-L3 there is disc bulging with facet arthropathy and ligamentous thickening causing mild canal narrowing and moderate neural foraminal stenosis. L3-L4: At L3-L4 there is disc bulging with facet arthropathy and ligamentous thickening causing mild canal narrowing and moderate to severe neural foraminal stenosis. L4-L5: L4-L5 there is disc bulging with facet arthropathy and ligamentous thickening causing moderate canal narrowing, severe right-sided and [id number] left-sided neural foraminal narrowing. L5-S1: At L5-S1 there is disc bulging with a small right paracentral disc extrusion with inferior subligamentous extension which indents the canal, slightly deforming the tapering thecal sac. There is moderate to severe neural foraminal narrowing, worse on the left. Soft tissues: Unremarkable. IMPRESSION: Lumbar spondylosis as noted.
--- OUTSIDE RECORDS SUMMARY | 2024-11-08 14:53 | XMS_ITS | Patient Health Record ---
Author Organization [facility] Address [address] [facility] [address] [place] [phone] Care Team Providers Care Steel Plate Printer Name Role Phone Norberto Paul Primary Care Provider [phone] FoxMaicol ottoine Unavailable [phone] Allergies No Known Allergies Results Component Value Reference Range Notes P-Uric Acid Reviewed date:01/02/2024 02:48:00 PM Interpretation:Normal Performing Lab: Notes/Report: Test performed by [facility] [address] [place] [address] , [address], [place] [address] Chris Cabezas MD, Utility Appraiser CLIA: [id number] Uric Acid 4.8 3.4-8.0 mg/dL P-Basic Metabolic Panel (BMP ) Reviewed date:01/02/2024 02:48:00 PM Interpretation:Cr 0.67 Performing Lab: Notes/Report: Test performed by [facility] [address] [place] [address] , [address], [place] [address] Chris Cabezas MD, Utility Appraiser CLIA: [id number] Sodium 140 135-145 mmol/L Potassium 4.7 3.5-5.3 mmol/L Chloride 104 97-108 mmol/L CO2 24 22-32 mmol/L Glucose 86 65-99 mg/dL BUN 11 8-23 mg/dL Creatinine 0.67 0.70-1.30 mg/dL Calcium 10.0 8.6-10.4 mg/dL eGFR by Creatinine 103 >59 mL/min/1.73m2 P-PSA Reviewed date:02/09/2024 01:16:37 PM Interpretation:Normal Performing Lab: Notes/Report: Test performed by [facility] [address] [place] [address] , [address], [place] [address] Chris Cabezas MD, Utility Appraiser CLIA: [id number] PSA 3.01 <4.00 ng/mL Please note this [...] Performing Lab: Notes/Report: Negative, see 03/05/2024 OV H-BUN/CREAT Reviewed date:03/02/2024 09:33:36 AM Interpretation:Normal Performing Lab: Notes/Report: BUN 16 9-20 mg/dl CREATT 0.70 0.66-1.25 mg/dl GFRAA 137 >60 ML/MIN EGFR 113 >60 ml/min P-CPK Reviewed date:01/06/2024 03:46:10 PM Interpretation:Normal Performing Lab: Notes/Report: Test performed by [facility] [address] [place] [address] [address], [address], [place] [id number] Chris Cabezas MD, Utility Appraiser CLIA: [id number] Creatine Kinase 119 20-200 U/L P-Sed Rate (ESR) Reviewed date:01/06/2024 03:46:10 PM Interpretation:21 Performing Lab: Notes/Report: Test performed by [facility] [address] [place] [address] [address], [address], [place] [address] Chris Cabezas MD, Utility Appraiser CLIA: [id number] Erythrocyte Sedimentation Ra te (ESR), Automated 21 <21 mm/hr P-TSH Reviewed date:01/06/2024 03:46:10 PM Interpretation:Normal Performing Lab: Notes/Report: Test performed by [facility] [address] [place] [address] , [address], [place] [address] Chris Cabezas MD, Utility Appraiser CLIA: [id number] TSH 1.23 0.43-5.25 mU/L X ray : Spine, lumbosacral Reviewed date:02/06/2024 10:33:49 AM Interpretation:multilevel DDD, see 02/04 f/u, EMG pending Performing Lab: Notes/Report: multilevel DDD, see 02/04 f/u, EMG pending X ray : Hip, right Reviewed date:12/09/2023 01:25:22 PM Interpretation:Negative Performing Lab: Notes/Report: Negative Medications Medication SIG (Take, Route, Frequency, Duration) Notes Start Date End Date Status predniSONE 10 MG 1 tablet Orally Once a day 03/05/2024 Not-Taking Naproxen 500 MG TAKE 1 TABLET BY DOLLY TH EVERY 12 HOURS WITH FOOD OR MILK NEEDED; Duration: 30 days Not-Taking HYDROcodone-Acetaminophen 7.5-325 MG 1 tablet as needed Orally 3 times a day 11/01/2024 Active Gabapentin 600 MG 1 tablet Orally 3 times a day; Duration: 30 days 11/01/2024 Active predniSONE 20 MG 1 tablet with food o r milk Orally Once a day; Duration: 30 day(s) 11/01/2024 Active Meloxicam 15 MG 1 tablet Orally Once a day; Duration: 30 days Active Methocarbamol 750 MG 1 tablet Orally inocencia ry 4 hrs Active Lidocaine 5 % 1 patch remove after 12 hours Externally Once a day Active Problems Problem Type SNOMED Code ICD Code Onset Dates Problem Status W/U Status Risk Notes Problem Hyperlipidemia (47243681) Hyperlipidemia (272.4) Active confirmed Problem Lymphadenopathy (74207315) Lymphadenopathy (R59.1) Active confirmed Problem Malaise (569862104) Other malaise (R53.81) Active confirmed Problem Calcaneal spur of left foot (350404923438800) Calcaneal spur of left foot (M77.32) Active confirmed Problem Body mass index 40+ - morbidly obese (665236194) BMI 40.0-44.9, adult (Z68.41) Active confirmed Problem Lumbosacral spondylosis without myelopathy (56500442) Osteoarthritis of spine with radiculopathy, lumbar region (M47.26) Active confirmed Problem Hereditary disorder of nervous system (493247814) Idiopathic neuropathy (G60.9) Active confirmed Problem Spinal stenosis of lumbar region (36616479) 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) Active confirmed Vital Signs Heart Rate 90 /min 11/01/2024 Blood pressure diastolic 90 mm Hg 11/01/2024 Height 58 in 11/01/2024 Blood pressure systolic 170 mm Hg 11/01/2024 Weight 195 lbs 11/01/2024 BMI 40.75 kg/m2 11/01/2024 Encounters Encounter Location Date Provider Diagnosis [facility] [facility]10 [facility] [address] [place] [id number] 12/08/2023 Catalina Fox Hip pain, right M25. 551 [facility] 121 [facility] [address] [place] [id number] 12/29/2023 Norberto Paul Right leg pain M79.6 04 [facility] [address] [facility] [address] [place], [place] [id number] 01/05/2024 Norberto Paul Leg weakness, bilate ral R29.898 and Other malaise R53.81 [facility] [address] [facility] [address] [place], [place] [id number] 02/05/2024 Norberto Paul Idiopathic neuropath y G60.9 and Prostate cancer screening Z12.5 [facility] [address] [facility] [address] [place], [place] [id number] 03/05/2024 Norberto Paul Osteoarthritis of sp ine with radiculopathy, lumbar region M47.26 and Neuroforaminal stenosis of lumbosacral spine M48.07 [facility] [address] [facility] [address] [place], [place] [id number] 03/19/2024 Norberto Paul Neuroforaminal steno sis of lumbosacral spine M48.07 and Osteoarthritis of spine with radiculopathy, lumbar region M47.26 [facility] [address] [facility] [address] [place], [place] [id number] 04/09/2024 Norberto Paul Neuroforaminal steno sis of lumbosacral spine M48.07 and Osteoarthritis of spine with radiculopathy, lumbar region M47.26 [facility] [address] [facility] [address] [place], [place] [id number] 04/30/2024 Norberto Paul Osteoarthritis of sp ine with radiculopathy, lumbar region M47.26 and Neuroforaminal stenosis of lumbosacral spine M48.07 [facility] [address] [place], [place] [id number] 11/01/2024 Norberto Paul Osteoarthritis of sp ine with radiculopathy, lumbar region M47.26 ; Neuroforaminal stenosis of lumbosacral spine M48.07 ; Other malaise R53.81 and BMI 40.0-44.9, adult Z68.41 [facility] [address] [facility] [address] [place], [place] [id number] 01/02/2024 Norberto Paul [facility] [address] [facility] [address] [place], [place] [id number] 01/06/2024 Norberto Paul [facility] [address] [facility] [address] [place], [place] [id number] 01/16/2024 Norberto Paul [facility] [address] [facility] [address] [place], [place] [id number] 03/12/2024 Norberto Paul [facility] [address] [facility] [address] [place], [place] [id number] 09/21/2024 Norberto Paul [facility] [address] [facility] [address] [place], [place] [id number] 10/25/2024 Norberto Paul Neuroforaminal steno sis of lumbosacral spine M48.07 [facility] [address] [facility] [address] [place], [place] [id number] 11/01/2024 Norberto Paul Assessments Encounter Date Diagnosis (ICD Code) Assessment Notes Treatment Notes Treatment Clinical Notes Section Notes 12/08/2023 Hip pain, right (ICD-10 - M25.551) meds with food; cautioned that muscle relaxant will make him drowsy; continue with heat/ice application; no lifting/pushin g/pullinguntil resolved 12/29/2023 Right leg pain (ICD-10 - M79.604) 01/05/2024 Other malaise (ICD-10 - R53.81) 01/05/2024 Leg weakness, bilateral (ICD-10 - R29.898) 02/05/2024 Prostate cancer screening (ICD-10 - Z12.5) 02/05/2024 Idiopathic neuropathy (ICD-10 - G60.9) 03/05/2024 Osteoarthritis of spine with radiculopathy, lumbar region (ICD-10 - M47.26) 03/05/2024 Neuroforaminal stenosis of lumbosacral spine (ICD-10 - M48.07) 03/19/2024 Osteoarthritis of spine with radiculopathy, lumbar region (ICD-10 - M47.26) 03/19/2024 Neuroforaminal stenosis of lumbosacral spine (ICD-10 - M48.07) Instructed to wean the prednisone to 5mg every other day 04/09/2024 Osteoarthritis of spine with radiculopathy, lumbar region (ICD-10 - M47.26) 04/09/2024 Neuroforaminal stenosis of lumbosacral spine (ICD-10 - M48.07) 04/30/2024 Osteoarthritis of spine with radiculopathy, lumbar region (ICD-10 - M47.26) 04/30/2024 Neuroforaminal stenosis of lumbosacral spine (ICD-10 - M48.07) 10/25/2024 Neuroforaminal stenosis of lumbosacral spine (ICD-10 - M48.07) 11/01/2024 Osteoarthritis of spine with radiculopathy, lumbar region (ICD-10 - M47.26) 11/01/2024 Neuroforaminal stenosis of lumbosacral spine (ICD-10 - M48.07) 11/01/2024 Other malaise (ICD-10 - R53.81) 11/01/2024 BMI 40.0-44.9, adult (ICD-10 - Z68.41) Plan Of Treatment Pending Test Test Name Order Date MRI : spine, lumbosacral with and withou t contrast 11/02/2024 EMG/NCV, bilateral 01/05/2024 Next Appt Details Provider Name:Norberto Clements Toy er, 11/15/2024 02:15:00 PM, [address], [place], [place], [phone], Insurance Providers Payer Name Payer Address Payer Phone Subscriber Number Group Number Insured Name Patient Relationship to Insured Coverage Start Date Coverage End Date [employer] [address] [address] [place] [phone] [id number] Kapil Pope Self - patient is the insured Medications Administered Medication Instructions Date of Administration Dosage Notes Dexamethasone 12/08/2023 1 mL Medical (General) History Surgical History Surgery Date(Month/Year) R wrist/ hand 12-19 right inguinal hernia repair 11/2009
[2024-11-08 16:19] LABS: Blood Urea Nitrogen 22 mg/dl (9-20); Creatinine,Serum 0.80 mg/dl (0.66-1.25); Estimated Glomerular Filt Rate 96 ml/min (>60); GFR (African American) 117 ML/MIN (>60)
[2024-11-08] MEDS: GADOTERIDOL INJ 20ML SYRINGE 18 ML IV (16:44)
[2024-11-08] MEDS: SODIUM CHLORIDE 0.9% 10ML SYR (RAD ONLY) 10 ML IV (16:44)
== END 2024-11-08 23:59 | disposition home or self-care (01) ==
LOC: RAD 14:51
PROVIDERS: PCP Family Medicine; Visit Provider Family Medicine
DX: M47.816 Spondylosis without myelopathy or radiculopathy, lumbar region (principal); G60.9 Hereditary and idiopathic neuropathy, unspecified
CPT/HCPCS: 36415; 72158; 82565; 84520; A9576